=== PATIENT | female | born 1990 | race Two or more races ===

== ENCOUNTER 2017-12-31 09:09 | Inpatient (IN) | payer OTHER ==
[2017-12-31] MEDS: Lactated Ringer's 1,000 ML IV SCH (23:00)
[2017-12-31 23:02] VITALS: BMI 36.6
[2017-12-31] MEDS ORDERED: Promethazine HCl 25 MG/ML VIAL IM PRN (23:27)
[2017-12-31] MEDS ORDERED: Ondansetron HCl/PF 4 MG/2 ML Vial IVP PRN (23:27)
[2017-12-31 23:40] LABS: Hemoglobin 13.7 g/dL (12.0-16.0); Mean Corpuscular HGB CONC 35.4 g/dL (32.0-36.0); Mean Corpuscular Hemoglobin 33.2 pg (27.0-31.0); Mean Corpuscular Volume 93.9 fl (81.0-99.0); Platelet Count 196 thou/uL (130-400); RBC Distribution Width 13.2 % (11.5-14.5); Red Blood Cell (RBC) Count 4.12 mill/uL (4.20-5.40); White Blood Cell (WBC) Count 9.6 thou/uL (4.8-10.8)
[2017-12-31] MEDS ORDERED: Lidocaine 1% (PF) 30 ML VIAL SC PRN (23:58)
[2018-01-01 00:21] LABS: HBSAg Index 0.22 S/CO (0-0.99); Hep B Surf Ag Non-Reactive S/CO (NonReactive)
[2018-01-01 00:22] LABS: Syphilis Antibody Nonreactive (Nonreactive); Syphilis Antibody Index 0.06 S/CO (<1.00 Non-Reactive)
[2018-01-01] MEDS ORDERED: Penicillin G Potassium 5 MILL.UNITS VIAL ONE (01:10)
[2018-01-01] MEDS ORDERED: NS w/ Oxytocin 10 units 500 ML ONE (01:10)
--- NOTE | 2018-01-01 02:05 | PDOC.LDHP ---
Labor and Delivery H&P Chief complaint: scheduled induction HPI: Luz Robins is a 27 year old female at 40.6 weeks by 2nd trimester US who presents for scheduled induction of labor for post-dates. She was late to care but has not had any issues with this . She is currently incarcerated and has set up adoption for her baby. She denies feeling any contractions, denies LOF or vaginal bleeding/discharge. Current gestational age (weeks): 40 (40.6) Due date: 12/26/17 Dating criteria: second trimester ultrasound Grav: 2 Para: 0 (0010) OB History Details: First resulted in elective AB Current complications: other (late to care, rubella non- immune, anxiety/depression) Abnormal US findings: No Past Medical History: GERD, Anxiety/Depression with potential for self-harm Current medications: pre-gloria vitamins, other (protonix, hydroxyzine) Social history: tobacco use (early in , not currently) - Physical Exam Vital signs reviewed and normal: yes General: NAD, resting Heart: RRR Lungs: CTAB Abdomen: gravid Extremeties: no edema FHT: category 1 [place] contractions every: baseline 135, accels present, no decels, mod variability - Vaginal Exam cm dilated: 4 Effacement: 50% Station: -3 - OB Labs Blood type: O RH: positive Antibody Screen: negative HIV: negative RPR: negative HEPSAg: negative 1 hour GCT: negative GBS: positive Rubella: non-immune - Assessment L&D Assessment: elective induction at term - Plan Plan: labor augmentation if indicated, GBS antibiotic prophylaxis, anesthesia consult for pain management -: 27 year old F at 40.6 weeks by 2T US, late to care with history of tobacco use early in , currently incarcerated. (1) sIUP: elective induction for post-dates - /-3 on initial check at 1230, ward of 5 - vertex position on US with right lateral placenta - start pitocin induction - recheck in 2-4 hours - Baby will be adopted, this has already been set up and adoption parents are in town (2) GBS+: - Prophylaxis with penicillin once starting pitocin (3) Late to Care - Initial OB visit at about 27 weeks - OB US have been normal - Has been taking vitamins since initiating care (4) Anxiety/Depression - History of self harm - Will continue to monitor - Recommend close follow up with mother for screening (5) ASCUS, HPV+ - recommend routine follow up OP for retesting s/p delivery <Heri Ventura - Last Filed: 01/01/18 02:02> <Audelia Ellis - Last Filed: 01/01/18 04:58> Allergies/Adverse Reactions: Allergies Allergy/AdvReac Type Severity Reaction Status Date / Time No Known Allergies Allergy Verified 12/31/17 22:33 Attending Addendum - Attending Addendum Date/Time: 12/31/17 8020 I personally evaluated the patient and discussed the management with Dr. Ventura I agree with the History, Examination, Assessment and Plan documented above with any addition or exceptions noted below. 27 yo female at 40.6 wks by 26.0 wk sono presents for IOL 2/2 late term to postdates . Patient presents in latent labor with regular mild contractions every 3 to 5 minutes. Noted to be 4 cm on exam. R/B/A discussed. Patient agreed to continue with pitocin per protocol for augmentation. GBS status positive. PCN started. Cephalic by bedside sono with right lateral placenta identified. FHT cat 1. Would like epidural for pain control. Will follow up exam in 2 to 4 hours or prn. 1. sIUP: Records reviewed. Late to care. Admission labs pending. 2. GBS pos: PCN 3. Latent labor 4. Anxiety/depression: Anxious about labor. Monitor for PPD and panic attacks. 5. Adoption 6. Cervical dysplasia: Follow up with colpo (ASCUS/HPV+). ABrayMD <Audelia Ellis - Last Filed: 01/01/18 04:58>
[2018-01-01] MEDS ORDERED: Bupivacaine 0.5% 20 ML, fentaNYL Citrate/PF 400 MCG in Sodium Chloride 0.9% 72 ML EPIDURAL SCH (03:00)
[2018-01-01] MEDS: Lactated Ringer's 1,000 ML IV SCH ×2 (04:14→16:22)
[2018-01-01] MEDS ORDERED: diphenhydrAMINE 50 MG/ML VIAL IVP PRN (04:42)
[2018-01-01] MEDS ORDERED: ePHEDrine/0.9% NaCl/PF SYRINGE 50 mg/10 ml SLOW IVP PRN (04:42)
[2018-01-01] MEDS ORDERED: Acetaminophen 325 MG TAB PO PRN (04:42)
[2018-01-01] MEDS ORDERED: Lactated Ringer's 500 ML IV PRN (04:42)
[2018-01-01] MEDS ORDERED: Naloxone HCl 0.4 mg/ml Vial IVP PRN ×2 (04:42)
[2018-01-01] MEDS ORDERED: Eucerin (Mineral Oil/Petrolatum,White) 30 gm Jar TOP PRN (04:42)
[2018-01-01] MEDS ORDERED: Ondansetron HCl/PF 4 MG/2 ML Vial IVP PRN (04:42)
[2018-01-01] MEDS ORDERED: Promethazine HCl 25 MG/ML VIAL IM PRN (04:42)
[2018-01-01] MEDS ORDERED: Fentanyl 4mcg/Marcaine 0.1% Cassette 100 ML EPIDURAL SCH (04:45)
[2018-01-01] MEDS ORDERED: Communication Order-Pharmacy FS SCH (04:45)
[2018-01-01] MEDS: Penicillin G 2.5 MILL.units 2.5 MILL.UNITS in Premix Bag 1 BAG IVPB SCH ×3 (04:47→09:13)
[2018-01-01] MEDS ORDERED: Mineral Oil PER 1 ML PO SCH (07:30)
--- NOTE | 2018-01-01 08:53 | PDOC.LDPN ---
Labor & Delivery Progress Note - Subjective Subjective: comfortable, vaginal pressure, other (27 yo @ 41 wks today, presented yesterday for IOL 2/2 postdates; no complaints this am. Pt received epidural. Pain controlled.) - Objective Vital signs reviewed and normal: yes General: NAD, resting, breathing through contractions Uterine fundus: non tender SVE: 6 Effacement: 100% Station: -2 FHT: category 1 (+ accels) [address] contractions every: 1-2 minutes AROM: clear fluid IUPC placed: yes - Assessment (1) Post-dates Code(s): O48.0 - POST-TERM Current Visit: Yes Status: Acute (2) Encounter for induction of labor Code(s): Z34.90 - ENCNTR FOR SUPRVSN OF NORMAL , UNSP, UNSP TRIMESTER Current Visit: Yes Status: Acute (3) Anxiety Code(s): F41.9 - ANXIETY DISORDER, UNSPECIFIED Current Visit: Yes Status: Acute (4) Depression Code(s): F32.9 - MAJOR DEPRESSIVE DISORDER, SINGLE EPISODE, UNSPECIFIED Current Visit: Yes Status: Acute (5) GERD (gastroesophageal reflux disease) Code(s): K21.9 - GASTRO-ESOPHAGEAL REFLUX DISEASE WITHOUT ESOPHAGITIS Current Visit: Yes Status: Acute (6) Late care Code(s): O09.30 - SUPRVSN OF PREG W INSUFFICIENT ANTENAT CARE, UNSP TRIMESTER Current Visit: Yes Status: Acute (7) Incarceration Code(s): Z65.1 - IMPRISONMENT AND OTHER INCARCERATION Current Visit: Yes Status: Acute (8) Positive GBS test Code(s): B95.1 - STREPTOCOCCUS, GROUP B, CAUSING DISEASES CLASSD ELSWHR Current Visit: Yes Status: Acute Plan: continue plan of care, pitocin for augmentation -: 1) sIUP, induction for post-dates - /-2 - vertex position on US with right lateral placenta - continue pitocin with labor checks q2h - Baby will be adopted, this has already been set up and adoption parents are in town (2) GBS+: - Prophylaxis with penicillin (3) Late to Care - Initial OB visit at about 27 weeks - OB US have been normal - Has been taking vitamins since initiating care (4) Anxiety/Depression - History of self harm - Will continue to monitor - Recommend close follow up with mother for screening (5) ASCUS, HPV+ - recommend routine follow up OP for retesting s/p delivery
[2018-01-01] MEDS: NS / Oxytocin 40 units/1000ml 1,000 ML IV PRN ×2 (13:32→14:54)
[2018-01-01] MEDS ORDERED: Misoprostol 200 MCG TAB ONE (14:19)
--- NOTE | 2018-01-01 15:19 | PDOC.EVN ---
Event Note - Event Note Event Note: s/p VAVD to term female with reassuring AG. Indication: category 2 FHTs that were worsening. 1 pull, < 10 minutes application. Delivered YVON with tight nuchal. Delayed clamping performed. Cord cut, blood sampled. Thin cord avulsed. Placenta incarcerated and manually extracted. Confirmed by Dr. Jeff. No palpable remnants. Second degree repaired 3-0 chromic in the usual fashion. Left periurethral repaired with 3-0 chromic for hemostasis. < 3 cm mixed echogenicity mass in fundus with no color flow suspected to be clot. 800 mcg cytotec given SD. Uterus firm. EBL 700 cc. No immediate complications.
[2018-01-01] MEDS ORDERED: Misoprostol 200 MCG TAB PR SCH (15:30)
--- NOTE | 2018-01-01 16:24 | PDOC.OPDEL ---
OB Operative/Delivery Note Delivery Dr/Surgeon: Gregoria Assist: Bertha Donis Pre-Delivery Diagnosis: medically indicated induction Procedure/Post Delivery Dx: operative vaginal delivery Anesthesia: epidural - Findings A Sex: female - 1 min: 8 - 5 min: 9 - Additional Findings/Plan Placenta delivered: manual removal Repaired Obstetrical Laceration: 2nd degree Estimated blood loss: 700 mL Compilations/Other Findings: Pre-op Diagnosis: 1. Induction of labor for post-dates 2. sIUP 3. GBS + 4. Rubella nonimmune 5. Late to care 6. Incarcerated 7. Anxiety/depression 8. GERD 9. PUPPP 10. ASCUS with HR HPV + Post-op Diagnosis: 1. Term intrauterine , delivered 2. same as above 3. 2nd degree perineal laceration s/p repair 4. Bilateral periurethral laceration; hemostatic right and s/p repair left Indications: A 27 y/o female presents for induction of labor for post- dates Delivery Note: This is 27 yo F @ 41.0 wks who delivered a viable F at 13:27 on 01/01/2018 via vacuum assisted vaginal delivery due to non- reassuring heart tones and worsening category 2 strip. head was in the YVON position and station was 2+. Risks of vacuum delivery were discussed with patient who gave verbal consent. Patient's bladder was emptied. Vaginal examination reconfirmed YVON position and 2+ station. A mushroom (M) cup vacuum was applied over the sagittal sutureand about 3 cm in front of the posterior fontanelle toward the face. Vacuum pressure was created with hand pump. The edge of the vacuum cup was carefully examined, and no maternal tissue was entrapped under the cup. With left hand applying counter pressure over the vacuum to prevent pop-off, right hand applied horizontal traction along pelvic axis, in coordination with uterine contraction and maternal pushing. Progressive descent was noted. The handle of the vacuum device was gradually elevated when the perineum began to bulge. Vacuum utilized for approximately 1 pull and 10 seconds. The cup was removed after the head delivery. There was a tight nuchal cord x1 which was reduced prior to delivery of shoulder and remainder of body. Delayed cord clamping performed. Cord cut, blood sampled. Placenta was manually removed due to cord avulsion after gentle traction due to thin cord. Ultrasound was utilized to evaluate for remaining placental tissue. < 3 cm echogenicity mass located at fundus with no doppler flow, suspected to be clot. Fundal massage was performed and the fundus was noted to be firm. IV oxytocin was administered. No palpable remnants. The cervix and vagina were inspected. A 2nd degree perineal laceration was noted and repaired with 3-[address] in usual fashion. Bilateral periurethral lacerations noted. Left sided periurethral laceration repaired using 3-0 chromic on SH. Right sided periurethral laceration hemostatic. EBL was 700 mL. Patient given 800 mg cytotec LA. She was also given one dose of cefoxitin after delivery. No immediate complications. Post delivery plan: routine recovery <Sophia Kinney - Last Filed: 01/01/18 22:01> Attending Addendum - Attending Addendum Date/Time: 01/02/18 0810 I personally evaluated the patient and discussed the management with Dr. Kinney. Present for entire procedure. Please note station was outlet. <David Donis - Last Filed: 01/02/18 15:12>
[2018-01-01] MEDS ORDERED: cefOXitin 2 GM in Sodium Chloride 0.9% 100 ML IVPB SCH (16:30)
[2018-01-01] MEDS ORDERED: Bisacodyl 10 MG SUPP PR PRN (18:50)
[2018-01-01] MEDS ORDERED: Acetaminophen/Codeine 30-300mg Tablet PO PRN ×2 (18:50)
[2018-01-01] MEDS: Ibuprofen 800 MG TAB PO SCH (19:44)
[2018-01-01] MEDS: Docusate Calcium (SURFAK) 240 MG CAP PO SCH (19:44)
[2018-01-01] MEDS: Ferrous Sulfate 325 MG TAB PO SCH (19:45)
[2018-01-01 20:01] LABS: Mean Corpuscular Hemoglobin 32.2 pg (27.0-31.0); Mean Corpuscular Volume 94.7 fl (81.0-99.0); Mean Platelet Volume 7.5 fL (7.4-10.4); Platelet Count 178 thou/uL (130-400); RBC Distribution Width 13.2 % (11.5-14.5); Red Blood Cell (RBC) Count 3.41 mill/uL (4.20-5.40); White Blood Cell (WBC) Count 17.3 thou/uL (4.8-10.8)
[2018-01-02] MEDS: Penicillin G 2.5 MILL.units 2.5 MILL.UNITS in Premix Bag 1 BAG IVPB SCH (00:26)
[2018-01-02] MEDS: Ibuprofen 800 MG TAB PO SCH ×3 (05:28→21:04)
[2018-01-02 05:55] LABS: Hemoglobin 9.2 g/dL (12.0-16.0); Mean Corpuscular HGB CONC 34.4 g/dL (32.0-36.0); Mean Corpuscular Hemoglobin 32.7 pg (27.0-31.0); Mean Corpuscular Volume 95.2 fl (81.0-99.0); Mean Platelet Volume 7.6 fL (7.4-10.4); Platelet Count 146 thou/uL (130-400); RBC Distribution Width 13.2 % (11.5-14.5); Red Blood Cell (RBC) Count 2.81 mill/uL (4.20-5.40); White Blood Cell (WBC) Count 11.6 thou/uL (4.8-10.8)
[2018-01-02 06:25] LABS: Hep C IgG Ab Non-Reactive (NonReactive); Hep C Index 0.17 S/CO (0-0.79)
[2018-01-02] MEDS ORDERED: Adacel (T-DAP) 0.5 ML VIAL IM ONE (09:00)
[2018-01-02] MEDS ORDERED: Measles/Mumps/Rubella 10 MCG/0.5 ML VIAL SC ONE (09:00)
[2018-01-02] MEDS: Docusate Calcium (SURFAK) 240 MG CAP PO SCH ×2 (09:05→21:04)
[2018-01-02] MEDS: Ferrous Sulfate 325 MG TAB PO SCH ×2 (09:05→18:19)
--- NOTE | 2018-01-02 10:59 | PDOC.PP ---
Post Progress Note Post Day #: 1 Subjective: 27 yo @ 41 wks delivered via vacuum assisted delivery yesterday at 1330. No complaints this am. Doing well. PO intake tolerated: yes Flatus: yes Ambulation: yes Vital Signs (12 hours) Temp Pulse Resp BP Pulse Ox 01/02/18 08:00 98.3 F 90 18 108/71 01/02/18 04:33 98.1 F 97 18 110/61 01/01/18 23:45 98.7 F 113 H 18 123/66 98 Weight Weight 99.79 kg - Physical Examination General: NAD Cardiovascular: no m/r/g, RRR Respiratory: clear to auscultation bilaterally Abdominal: lochia Fundus firm & at: umbilicus Neurological: no gross focal deficits Psychiatric: A&Ox3, normal affect Result Diagrams: 01/02/18 05:27 Additional Labs: Post Labs Blood Type O POSITIVE 12/31/17 23:00 Hep Bs Antigen Non-Reactive S/CO (NonReactive) 12/31/17 23:00 (1) Post-dates Code(s): O48.0 - POST-TERM Status: Acute (2) Encounter for induction of labor Code(s): Z34.90 - ENCNTR FOR SUPRVSN OF NORMAL , UNSP, UNSP TRIMESTER Status: Acute (3) Anxiety Code(s): F41.9 - ANXIETY DISORDER, UNSPECIFIED Status: Acute (4) Depression Code(s): F32.9 - MAJOR DEPRESSIVE DISORDER, SINGLE EPISODE, UNSPECIFIED Status : Acute (5) GERD (gastroesophageal reflux disease) Code(s): K21.9 - GASTRO-ESOPHAGEAL REFLUX DISEASE WITHOUT ESOPHAGITIS Status: Acute (6) Late care Code(s): O09.30 - SUPRVSN OF PREG W INSUFFICIENT ANTENAT CARE, UNSP TRIMESTER Status: Acute (7) Incarceration Code(s): Z65.1 - IMPRISONMENT AND OTHER INCARCERATION Status: Acute (8) Positive GBS test Code(s): B95.1 - STREPTOCOCCUS, GROUP B, CAUSING DISEASES CLASSD ELSWHR Status : Acute (9) Status post vacuum-assisted vaginal delivery Code(s): Z87.42 - PERSONAL HISTORY OF OTH DISEASES OF THE FEMALE GENITAL TRACT Status: Acute - Assessment/Plan (1) sIUP, induction for post-dates, s/p vacuum assisted vaginal delivery- -Mom doing well. Ambulating, tolerating po, pain controlled, passing flatus, minimal lochia. -continue to monitor (2) GBS+: - Prophylaxis with penicillin (3) Late to Care - Initial OB visit at about 27 weeks - OB US have been normal - Has been taking vitamins since initiating care (4) Anxiety/Depression - History of self harm - Will continue to monitor - Recommend close follow up with mother for screening (5) ASCUS, HPV+ - recommend routine follow up OP for retesting s/p delivery <Shayla Ann - Last Filed: 01/02/18 11:00> Vital Signs (12 hours) Temp Pulse Resp BP 01/02/18 16:00 98.0 F 105 H 20 01/02/18 12:29 98.0 F 105 H 20 113/67 01/02/18 12:00 98.0 F 105 H 20 01/02/18 08:00 98.0 F 105 H 20 108/71 Weight Weight 99.79 kg Result Diagrams: 01/02/18 05:27 Additional Labs: Post Labs Blood Type O POSITIVE 12/31/17 23:00 Hep Bs Antigen Non-Reactive S/CO (NonReactive) 12/31/17 23:00 <Constance Jeff - Last Filed: 01/02/18 19:41> Attending Addendum - Attending Addendum Date/Time: 01/02/181939 I personally evaluated the patient and discussed the management with Dr. Ramirez I agree with the History, Examination, Assessment and Plan documented above with any addition or exceptions noted below- Patient without complaints. Ambulating well. Afebrile VSS A/P: 1) PPD#1 s/p VAVD with manual extraction of placenta- Continue routine care. <Constance Jeff - Last Filed: 01/02/18 19:41>
[2018-01-02] MEDS ORDERED: Benzocaine/Menthol 20-0.5% 60 ML CAN TOP PRN (21:22)
[2018-01-03] MEDS: Ibuprofen 800 MG TAB PO SCH ×2 (06:30→14:48)
[2018-01-03] MEDS: Ferrous Sulfate 325 MG TAB PO SCH ×2 (08:07→16:36)
[2018-01-03] MEDS: Docusate Calcium (SURFAK) 240 MG CAP PO SCH (08:07)
[2018-01-03 08:30] VITALS: BP 122/82; TEMP 98.2
--- NOTE | 2018-01-03 15:24 | PDOC.PP ---
Post Progress Note Post Day #: 2 Subjective: Feeling well today, no complaints. PO intake tolerated: yes Flatus: yes (has had BM) Ambulation: yes Vital Signs (12 hours) Temp Pulse Resp BP 01/03/18 08:27 98.2 F 106 H 20 122/82 01/03/18 08:00 98.2 F 106 H 20 Weight Weight 99.79 kg - Physical Examination General: NAD Cardiovascular: no m/r/g, RRR Respiratory: clear to auscultation bilaterally, non-labored breathing Abdominal: + bowel sounds, lochia (minimal) Extremities: negative homans (B) Skin: no rash Neurological: no gross focal deficits Psychiatric: A&Ox3, normal affect Result Diagrams: 01/02/18 05:27 Additional Labs: Post Labs Blood Type O POSITIVE 12/31/17 23:00 Hep Bs Antigen Non-Reactive S/CO (NonReactive) 12/31/17 23:00 (1) Status post vacuum-assisted vaginal delivery Code(s): Z87.42 - PERSONAL HISTORY OF OTH DISEASES OF THE FEMALE GENITAL TRACT Status: Acute Comment: day #2, course progressing as expected. H& H, VSS. Ok for discharge today. Recommend f/u at [facility] at 2 and 6 wks. (2) ASCUS with positive high risk HPV Code(s): [id number] - Status: Acute Comment: Will need repeat testing per ASCCP algorithm. (3) Anxiety and depression Code(s): F41.9 - ANXIETY DISORDER, UNSPECIFIED; F32.9 - MAJOR DEPRESSIVE DISORDER, SINGLE EPISODE, UNSPECIFIED Status: Acute Comment: H/o self harm. Mood currently stable. Close monitoring outpatient with screening. <Davion Barahona - Last Filed: 01/03/18 15:22> Vital Signs (12 hours) Temp Pulse Resp BP 01/03/18 08:27 98.2 F 106 H 20 122/82 01/03/18 08:00 98.2 F 106 H 20 Weight Weight 99.79 kg Result Diagrams: 01/02/18 05:27 Additional Labs: Post Labs Blood Type O POSITIVE 12/31/17 23:00 Hep Bs Antigen Non-Reactive S/CO (NonReactive) 12/31/17 23:00 <Constance Jeff - Last Filed: 01/03/18 19:51> Attending Addendum - Attending Addendum Date/Time: 01/03/181948 I personally evaluated the patient and discussed the management with Dr. Barahona I agree with the History, Examination, Assessment and Plan documented above with any addition or exceptions noted below- Patient without complaints. minimal lochia. Afebrile VSS A/P: 1) PPD#2 s/p VAVD- d/c today to facility. <Constance Jeff - Last Filed: 01/03/18 19:51>
[2018-01-03] MEDS ORDERED: Measles/Mumps/Rubella 10 MCG/0.5 ML VIAL SC ONE (16:30)
== END 2018-01-03 18:25 | disposition home or self-care (01) | DRG 774 ==
LOC: UNDOADMIN 09:09 → L&D 09:09 → 3SW 01-01 18:04
PROVIDERS: ADMIT Student in an Organized Health Care Education/Training Program; ATTEND Student in an Organized Health Care Education/Training Program
PROC: 10E0XZZ Delivery of Products of Conception, External Approach (ICD-10-PCS; principal; 2018-01-01)
PROC: 0KQM0ZZ Repair Perineum Muscle, Open Approach (ICD-10-PCS; 2018-01-01)
PROC: 10907ZC Drainage of Amniotic Fluid, Therapeutic from Products of Conception, Via Natural or Artificial Opening (ICD-10-PCS; 2018-01-01)
PROC: 3E033VJ Introduction of Other Hormone into Peripheral Vein, Percutaneous Approach (ICD-10-PCS; 2018-01-01)
DX: O48.0 Post-term pregnancy (principal); O98.32 Other infections with a predominantly sexual mode of transmission complicating childbirth; Z3A.41 41 weeks gestation of pregnancy; Z37.0 Single live birth; O99.824 Streptococcus B carrier state complicating childbirth; O99.344 Other mental disorders complicating childbirth; O75.89 Other specified complications of labor and delivery; F41.8 Other specified anxiety disorders; A63.0 Anogenital (venereal) warts; O70.1 Second degree perineal laceration during delivery
CPT/HCPCS: 36415; 51702; 76815; 85027; 86780; 86803; 86850; 86900; 86901; 87340; 90707; J0694; J2001; J2540; J3010; J3490; J7050